=== PATIENT | female | born 1970 | race African-American/Black ===

== ENCOUNTER 2019-10-09 13:19 | Observation (INO) ==
--- NOTE | 2019-10-09 14:53 | Diag Imaging Result Doc PS360 ---
EXAM: FLAT/UPRIGHT ABD/1 VIEW CHEST HISTORY: constipation no bm x 7 days TECHNIQUE: Three views COMPARISON: 09/01/2019 FINDINGS: The lungs are well expanded. No pneumonia. No cardiomegaly. No free air beneath the diaphragm. There are multiple surgical clips in the upper abdomen. Prominent stool throughout the colon. No bowel obstruction. No organomegaly. IMPRESSION: Prominent constipation Electronically signed by Nilson Dickey 10/09/2019 2:51 PM
--- NOTE | 2019-10-09 15:53 | PROVIDER DOCUMENTATION ---
This chart was entered by Kimmy Fair Scribe, acting as scribe for Adama Norris MD. HPI-Abdominal Pain/GI Problem - General Chief Complaint: Constipation Stated Complaint: PASSED OUT Time Seen by Provider: 10/09/19 15:05 Source: patient Allergies/Adverse Reactions: Patient Allergies Allergy/AdvReac Type Severity Reaction Status Date / Time cefdinir [From Omnicef] Allergy RASH Verified 10/09/19 15:06 morphine Allergy RASH Verified 10/09/19 15:06 Home Medications: Home Medication List Medication Instructions Recorded Confirmed Last Taken Type Calcium 500 mg PO TID 03/01/18 10/09/19 09/01/19 History Cyanocobalamin (Vitamin B-12) 1 each INJ DIRECTED 03/01/18 10/09/19 09/01/19 History [Vitamin B-12] Ergocalciferol (Vitamin D2) 50,000 unit PO DIRECTED 03/01/18 10/09/19 09/01/19 History [Vitamin D] Levothyroxine [Synthroid] 25 microgm PO DAILY 03/01/18 10/09/19 09/01/19 History Multivitamin [Multivitamins] 1 each PO DAILY 03/01/18 10/09/19 09/01/19 History - History of Present Illness-ABD Nature of Presenting Problems: 49 y/o female presents to the ED with complaint of abdominal pain and constipation times one month worsening today, nausea times one week with vomiting beginning today.Last full BM was 1 week ago- now vomiting. The patient states she was seen here 2 weeks ago and took the enemas as suggested. She states she also saw PCP, Dr. Rosa, last week and increased who advised Miralax and continued Linzess as normal every other day without relief of symptoms. Last BM at least 7 days ago. Abdominal Pain Onset Location: reports: generalized abdomen Quality of Pain: reports: cramping Onset/Duration: reports: this morning Timing: reports: still present Activities at Onset: reports: light activity Associated Symptoms: reports: nausea, vomiting. denies: fever/chills Last BM: 1 week ago Rectal Bleeding: reports: none Rectal Pain: reports: none Similar Symptoms Previously?: Yes Recently seen or treated by another doctor?: Yes (here 2 weeks ago, PCP last week ) Review of Systems - Adult - REVIEW OF SYSTEMS - ADULT Constitutional: denies: chills, fever, night sweats Eyes: reports: no symptoms reported Ears, Nose, Mouth & Throat: reports: no symptoms reported Cardiovascular: reports: no symptoms reported Respiratory: reports: no symptoms reported Gastrointestinal: reports: abdominal pain, nausea, vomiting. denies: diarrhea Genitourinary: denies: dysuria, discharge, hematuria Musculoskeletal: reports: no symptoms reported Integumentary: reports: no symptoms reported Neurological: reports: no symptoms reported Psychiatric: reports: no symptoms reported Endocrine: reports: no symptoms reported Hematologic/Lymphatic: reports: no symptoms reported Allergic/Immunologic: reports: no symptoms reported All Other Systems: Reviewed and Negative Past History - Adult - PAST MEDICAL HISTORY-ADULT Review of Records: reports: Nursing Assessment Review, Medications Reviewed Major Childhood Illnesses: reports: denies history Cardiovascular: reports: HTN Respiratory: reports: denies history Gastrointestinal: reports: denies history Obstetrical/Gynecological: reports: denies history Genitourinary: reports: kidney disease Musculoskeletal: reports: denies history Neurological: reports: denies history Psychiatric: reports: denies history Endocrine/Immune: reports: thyroid disorder Other Conditions: reports: denies history - PRIOR SURGERIES/PROCEDURES Surgical/Procedure History: reports: cholecystectomy, hysterectomy, tonsillectomy - PRIOR HOSPITALIZATIONS Prior Hospitalizations: reports: for other non-related - IMMUNIZATION STATUS Childhood Immunizations: See Nurse Assessment Flu Vaccine: See Nurse Assessment - FAMILY HISTORY Family History: reviewed, not pertinent, other - SOCIAL HISTORY Smoking: non-smoker Substance Use: denies Living Situation: family Physical Exam-General - PHYSICAL EXAM-ADULT Initial Vital Signs Reviewed: Yes - CONSTITUTIONAL General Appearance: alert, moderate distress - RESPIRATORY Respiratory: lungs clear, normal breath sounds. negative: rales, rhonchi, wheezing - CARDIOVASCULAR Cardiovascular: regular rate, rhythm, no gallop - GASTROINTESTINAL (ABDOMEN) Abdominal Exam: soft, tenderness. negative: distended - SKIN Integumentary: normal color, warm/dry. negative: diaphoresis - NEUROLOGIC Neurologic: grossly normal Progress - PLAN OF CARE/RESULTS Progress/Plan/Lab Results: Vital Signs - 8 hr 10/09/19 13:31 Temperature 98 F Pulse Rate 75 Respiratory Rate 24 Blood Pressure 147/90 O2 Sat by Pulse Oximetry 100 Orders Category Date Time Status FLAT/UPRIGHT ABD/1 VIEW CHEST [RAD] Stat Exams 10/09/19 13:36 Completed - XRAY 1 XRAY Study: Abdomen (EXAM: FLAT/UPRIGHT ABD/1 VIEW CHEST HISTORY: constipation no bm x 7 days TECHNIQUE: Three views COMPARISON: 09/01/2019 FINDINGS: The lungs are well expanded. No pneumonia. No cardiomegaly. No free air beneath the diaphragm. There are multiple surgical clips in the upper abdomen. Prominent stool throughout the colon. No bowel obstruction. No organomegaly. IMPRESSION: Prominent constipation Electronically signed by Nilson Dickey 10/09/2019 2:51 PM) - CONSULTS/PCP/HOSPITALIST Notification #1 *Consult/PCP/Hospitalist*: Dr. Ponce, Hospitalist Time Discussed: 15:47 Reason/Comments: constipation Consult Disposition: Admit Departure - Departure Date of Disposition Decision: 10/09/19 Time of Disposition Decision: 15:48 DIAGNOSIS: Vomiting Constipation Qualifiers: Constipation type: chronic idiopathic constipation Qualified Code(s): K59.04 - Chronic idiopathic constipation Abdominal pain Qualifiers: Abdominal location: generalized Qualified Code(s): R10.84 - Generalized abdominal pain Disposition: ADMITTED INPATIENT 09 Certified Medical Emergency: Emergent Condition: Fair Referrals and Follow-Ups: Deborah Rosa MD [Primary Care Provider] - - Critical Care Note This patient required my direct & personal management of CC.: No Attestation - Physician/ JOSE Attestation Patient care was provided by Advanced Practice Provider:: No The physician spent face to face time with patient:: Yes Advanced Practice Provider documentation review:: Supervising physician onsite and consulted in the evaluation and care of this patient. The physician did have a face to face encounter with the patient. This chart was documented by the indicated scribe, (Kimmy Fair, Yogi) and accurately reflects the services I performed and decisions made by me, Adama Norris MD, as attested by the provider's signature.
[2019-10-09] MEDS ORDERED: DULCOLAX PR ONE (16:34)
[2019-10-09 16:48] LABS: BASO# 0.03 X1000 (0.0-0.2); BASO% 0.2 % (0.0-0.8); HEMATOCRIT 37.9 % (37.0-47.0); HEMOGLOBIN 12.7 g/dL (12.0-16.0); IMM GRAN# 0.04 X1000 (0.0-0.04); IMM GRAN% 0.3 % (0.0-0.5); LYMPH# 0.97 X1000 (1.2-3.4); LYMPH% 6.2 % (20.5-51.1); MCH 29.9 PG (27-31); MCHC 33.5 g/dL (33-37); MCV 89.2 FL (81-99); MONO# 0.78 X1000 (0.11-0.59); MPV 10.5 FL (7.4-10.4); NEUT# 13.88 X1000 (1.4-6.5); NEUT% 88.3 % (42.2-75.2); PLT 341 X1000 (130-400); RBC 4.25 XMIL (4.2-5.4); RDW 13.3 % (11.5-14.5)
[2019-10-09 16:55] LABS: URINE SOURCE CLEAN CATCH
[2019-10-09 16:59] LABS: BILIRUBIN URINE NEGATIVE (NEGATIVE); BLOOD URINE SMALL (NEGATIVE); COLOR STRAW; GLUCOSE URINE 100 mg/dL (NEGATIVE); KETONE URINE NEGATIVE (NEGATIVE); LEUKOCYTES URINE NEGATIVE (NEGATIVE); NITRITE URINE NEGATIVE (NEGATIVE); PH URINE 7.5; PROTEIN URINE NEGATIVE (NEGATIVE); SP GRAVITY URINE 1.011; TURBIDITY URINE CLEAR (CLEAR); UR EPITHELIAL CELLS <10 /HPF (<10); URINE BACTERIA NEGATIVE /HPF; URINE RBC <10 /HPF (<10); URINE WBC <10 /HPF (<10); UROBILINOGEN URINE NORMAL (NORMAL)
[2019-10-09 17:01] LABS: AGAP 13; BUN 10 mg/dL (8-22); CALCIUM 9.8 mg/dL (8.8-10.2); CHLORIDE 100 mmol/L (98-107); COSMO 275; CREATININE 0.7 mg/dL (0.5-0.9); ESTIMATED GFR > 60; GLUCOSE 141 mg/dL (70-104); POTASSIUM 3.9 mmol/L (3.5-5.1); SODIUM 137 mmol/L (136-145); TCO2 23 mmol/L (25-35)
[2019-10-09] MEDS ORDERED: BENTYL IM ONE (17:09)
--- NOTE | 2019-10-09 17:44 | HISTORY AND PHYSICAL ---
CHIEF COMPLAINT: Abdominal pain, nausea. HISTORY OF PRESENT ILLNESS: The patient is a very pleasant 49-year-old female who notes that she has chronic GI issues and chronic constipation. She is scheduled to see DR. Sainz I believe this week for said symptoms. However, her symptoms became worse. She has not had a bowel movement in a week. Notes that she has been nauseated, abdominal pain. In fact having more intense abdominal pain today than yesterday. Denies any fevers, chills. Denies any hematemesis, melena or hematochezia. The patient notes that she has taken enemas at home. She has tried MiraLAX. She has tried Linzess with no relief in symptoms. ALLERGIES: Cefdinir and morphine causing a rash. MEDICATIONS: Calcium, B12, Synthroid, multivitamin. REVIEW OF SYSTEMS: Positive nausea, vomiting, abdominal pain, decreased oral intake. She has been severely constipated. Has had no bowel movement in a week. Denies hematemesis, melena, hematochezia. Denies weight loss or gain but notes she does not check her weight on any regular basis. Denies fevers, chills, dysuria, frequency, urgency. PAST MEDICAL HISTORY: Hypertension, hypothyroidism. PAST SURGICAL HISTORY: She has had a hysterectomy, cholecystectomy and tonsillectomy. FAMILY HISTORY: Noncontributory. SOCIAL HISTORY: Patient does not smoke or drink. PHYSICAL EXAMINATION: VITAL SIGNS: Reviewed: Temp 98 degrees, pulse 85, respiratory 24, BP 147/90, sat 100% on room air. GENERAL: Patient is well is awake, alert, pleasant although somewhat ill-appearing due to her abdominal pain. She is in no respiratory distress. HEENT: Normocephalic. NECK: Supple. CARDIOVASCULAR: Regular rate, CHEST: Clear, nonlabored. ABDOMEN: Diffusely tender to even light palpation. Decreased but positive bowel sounds. Appears nondistended. Unable to fully examine due to her abdominal tenderness. EXTREMITIES: Moves all extremities no edema. NEUROLOGIC: No focal neurological changes. SKIN: Warm, dry. No rashes. ASSESSMENT: 1. Severe constipation. 2. Hypertension. 3. Hypothyroidism. 4. Nausea vomiting. PLAN: We are going to admit patient to the hospital. IV fluids. Enemas. Consult GI. Her labs are currently pending. We will look add thyroid to the labs ER order. We will treat labs after they return. We will start her on her home medications once doses are available. cc: Julián Ponce MD
[2019-10-09] MEDS ORDERED: FLEET ENEMA PR ONE (18:14)
[2019-10-09] MEDS ORDERED: FLEET ENEMA PR PRN (18:14)
[2019-10-09] MEDS ORDERED: MISC. PHARMACY COMMUNICATION SCH (19:00)
[2019-10-09] MEDS: TORADOL IV PRN (19:02)
[2019-10-09] MEDS: NS 1,000 ML IV SCH (21:30)
[2019-10-10] MEDS: TORADOL IV PRN ×3 (01:20→17:45)
[2019-10-10] MEDS: NON-FORMULARY BULK MED SCH ×2 (02:33→06:29)
[2019-10-10] MEDS: NS 1,000 ML IV SCH ×3 (06:30→21:15)
[2019-10-10 07:02] LABS: BASO# 0.02 X1000 (0.0-0.2); BASO% 0.1 % (0.0-0.8); EOS# 0.01 X1000 (0.0-0.7); EOS% 0.1 % (0.0-10.0); HEMATOCRIT 37.3 % (37.0-47.0); HEMOGLOBIN 12.5 g/dL (12.0-16.0); IMM GRAN# 0.05 X1000 (0.0-0.04); IMM GRAN% 0.3 % (0.0-0.5); LYMPH# 2.02 X1000 (1.2-3.4); LYMPH% 12.2 % (20.5-51.1); MCHC 33.5 g/dL (33-37); MCV 89.4 FL (81-99); MONO# 1.43 X1000 (0.11-0.59); MONO% 8.7 % (1.7-9.3); MPV 10.8 FL (7.4-10.4); NEUT# 12.97 X1000 (1.4-6.5); NEUT% 78.6 % (42.2-75.2); PLT 323 X1000 (130-400); RBC 4.17 XMIL (4.2-5.4); RDW 13.4 % (11.5-14.5)
[2019-10-10 07:22] LABS: AGAP 13; ALB/GLOB RATIO 1.7; ALBUMIN 3.9 g/dL (3.5-5.0); ALKALINE PHOSPHATASE 67 U/L (32-104); BUN 11 mg/dL (8-22); CALCIUM 9.4 mg/dL (8.8-10.2); CHLORIDE 108 mmol/L (98-107); COSMO 282; ESTIMATED GFR > 60; GLUCOSE 95 mg/dL (70-104); GOT 20 U/L (10-30); GPT 9 U/L (10-36); POTASSIUM 3.7 mmol/L (3.5-5.1); SODIUM 142 mmol/L (136-145); TCO2 21 mmol/L (25-35); TOTAL BILIRUBIN 0.84 mg/dL (0.20-1.00); TOTAL PROTEIN 6.2 g/dL (6.3-8.3)
[2019-10-10 07:41] LABS: FREE T4 0.87 ng/dL (0.93-1.70); TSH 0.71 uIUmL (0.27-4.20)
[2019-10-10] MEDS ORDERED: GOLYTELY PO ONE (12:12)
--- NOTE | 2019-10-10 13:36 | GASTROENTEROLOGY CONSULTATION ---
DATE: 10/10/2019 REASON FOR CONSULTATION: Constipation and syncope. HISTORY OF PRESENT ILLNESS: Ms. Melchor is a 49-year-old female with a history of gastric bypass in 2013. The patient also has deficiency of vitamin B 12, vitamin D and low iron. She goes for iron infusion to Dr. Crane. The patient mentioned having lost at least 100 pounds after gastric bypass. She had been to [facility] yesterday for her constipation and had received four enemas, and still she has not had a good bowel movement. Yesterday she came to [facility]. She mentioned that she has been having constipation for the last 1 week onwards, and yesterday she passed out in the bathroom. She had severe abdominal pain along with nausea and vomiting. The patient has denied any shortness of breath, fever, chills, or noticing any blood in the stool or in the emesis. The patient mentioned that she has also taken Linzess and MiraLAX for constipation. The patient mentioned having an EGD and a colonoscopy in March, findings were gastritis, 2 ulcers in the gastric anastomotic region, internal grade II hemorrhoids and stool in the rectosigmoid region- lavaged. Gastric pouch biopsy revealed gastritis and negative H-pylori. Her abdominal x-ray on 10/09 showed prominent constipation. PAST MEDICAL HISTORY: Hypertension, hypothyroidism, diabetes type 2, B 12 deficiency, vitamin D deficiency, low iron, Chronic constipation. PAST SURGICAL HISTORY: twice, hysterectomy, gallbladder surgery, nerve decompression of the right leg, and gastric bypass. FAMILY HISTORY: Her dad and grandfather had colon cancer. Mom has kidney cancer, hypertension and diabetes. SOCIAL HISTORY: Patient is , has 2 kids. She has denied any smoking, alcohol, or illicit drugs. The patient is currently on disability. ALLERGIES: To Omnicef and morphine. HOME MEDICATIONS: Calcium 500 mg 3 times a day, vitamin B 12 1000 mcg subcutaneous, vitamin D 50,000 units as directed, multivitamin 1 tablet daily, Synthroid 25 mg p.o. daily, alprazolam 1 mg three times a day and bupropion HCL 100 mg two tablets b.i.d. PHYSICAL EXAMINATION: Vital Signs: Temperature 97.6 degrees, pulse 79, respirations 18, blood pressure 113/54, oxygen saturation 100% on room air. The patient's weight is 180 pounds. BMI is 30.0 kg/m2. General: She is alert, oriented x3, and in no acute distress. Answers questions appropriately. HEENT: Pale conjunctivae. No icterus. PERRL. Neck: Supple. Lungs: Clear to auscultation in the anterior bell. Cardiovascular: Regular rate and rhythm. Abdomen: Mildly distended, soft, tender. Active bowel sounds heard in all 4 quadrants. Extremities: No clubbing, no cyanosis, no edema. Pedal pulses 2+ present bilaterally. Neurologic: She is alert and oriented x3. Nonfocal. Cranial nerves 2-12 grossly intact. LABS: WBC 16.50, RBCs 4.17, hemoglobin 12.5, hematocrit 37.3, platelet count 323. Sodium 142, potassium 3.7, chloride 108, carbon dioxide 21, anion gap 13. BUN 11, creatinine 1.0, glucose 95, calcium 9.4, total bilirubin 0.84. AST 20, ALT 9, alkaline phos 67, albumin is 3.9. TSH 0.71, and free T4 is 0.87. Urinalysis showed glucose of 100, small amount of blood. IMPRESSION: 1. Constipation treated with Linzess and Miralax and Enemas. 2. Nausea and vomiting. 3. Abdominal pain. 4. Syncope 6. S/P gastric bypass. 7. H/o anastomotic ulcers at gastric bypass site noted in March 2019 treated with PPI and Carafate. PLAN: Ms. Melchor is a 49 year old female with the history of gastric bypass, GI has been consulted for constipation. Patient's abdominal x- ray has shown prominent constipation. We have started her on golytely as a GI lavage and also Dulcolax 10 mg suppository at bedtime. The patient is on clear liquid diet. The patient is currently on IV fluids 125 ml/hr. She is receiving antiemetic Zofran for nausea and vomiting. We have ordered a KUB of the abdomen in am. We will continue to monitor the patient's bowel movements and follow the plan of care per PCP. This plan was discussed with Dr. Gonzales. Thank you for the consult and please call us for any further questions or concerns. Dictated by YUNG Blandon for Nahid Gonzales MD cc: Nahid Gonzales MD I have seen and examined the patient myself and I agree with the above plan of care. I have discussed the above with the patient and her family at bedside and all questions were answered. Please call us with any further questions. TOBI
[2019-10-10] MEDS: ZOFRAN IV PRN (15:07)
[2019-10-10] MEDS: TUMS PO SCH (16:41)
[2019-10-10] MEDS: XANAX PO SCH (17:39)
--- NOTE | 2019-10-10 18:29 | PROGRESS NOTE ---
DATE: 10/10/2019 SUBJECTIVE: The patient states that she feels very distended and full. She still has not had a decent bowel movement. OBJECTIVE: Vital Signs: Temperature 97.6 degrees, blood pressure 113/54, heart rate 79, respirations 18, O2 saturations 100% on room air. General: This is a middle- aged female lying in bed in no acute distress. Heart: S1, S2 normal. Regular rate and rhythm. Lungs: Clear to auscultation bilaterally. Abdomen: Hypoactive bowel sounds. Positive for diffuse tenderness. Extremities: No edema, no cyanosis, no calf tenderness. Neurologic: The patient is alert and oriented x3. LABORATORY DATA: White blood cell count 16, hemoglobin 12, hematocrit 37, platelets 323,000. Sodium 142, potassium 3.7, chloride 108, CO2 21, BUN 11, creatinine 1, glucose 95, TSH 0.7. ASSESSMENT AND PLAN: 1. Severe chronic constipation. The patient has been started on the GoLYTELY prep by GI. We will monitor her response closely. 2. Hypothyroidism. Continue on Synthroid. 3. Leukocytosis. The patient is afebrile. The chest x-ray is unremarkable, and the patient's urinalysis is normal. We will check inflammatory markers and consider a CT of the chest, abdomen, and pelvis if the white count continues to rise. 4. Depression. Continue on Wellbutrin. 5. Anxiety disorder. Continue on Xanax. 6. Deep vein thrombosis prophylaxis. We will start the patient on Lovenox. cc: Veronica Aguila MD MTDD
[2019-10-10] MEDS: WELLBUTRIN PO SCH (21:14)
[2019-10-10] MEDS: DULCOLAX PR SCH (21:15)
[2019-10-11] MEDS: TORADOL IV PRN ×3 (00:20→21:30)
[2019-10-11] MEDS: NS 1,000 ML IV SCH ×3 (06:00→20:04)
[2019-10-11] MEDS: SYNTHROID PO SCH (06:29)
[2019-10-11 06:54] LABS: HEMATOCRIT 33.7 % (37.0-47.0); MCH 29.7 PG (27-31); MCHC 32.6 g/dL (33-37); MCV 91.1 FL (81-99); MPV 10.9 FL (7.4-10.4); RBC 3.7 XMIL (4.2-5.4); RDW 13.6 % (11.5-14.5); WBC 8.18 X1000 (4.8-10.8)
[2019-10-11 07:24] LABS: AGAP 10; BUN 6 mg/dL (8-22); CALCIUM 8.5 mg/dL (8.8-10.2); CHLORIDE 107 mmol/L (98-107); COSMO 276; CREATININE 0.6 mg/dL (0.5-0.9); ESTIMATED GFR > 60; GLUCOSE 81 mg/dL (70-104); POTASSIUM 3.6 mmol/L (3.5-5.1); SODIUM 140 mmol/L (136-145); TCO2 23 mmol/L (25-35)
--- NOTE | 2019-10-11 08:43 | Diag Imaging Result Doc PS360 ---
EXAM: KUB ABDOMEN 10/11/2019 HISTORY: severe constipation TECHNIQUE: KUB COMMENT: There is some stool in the descending colon. There is gas throughout most of the colon without evidence of dilatation. There is some gas in the rectum. The small bowel is not distended. The stomach is not distended. There are surgical clips in the right upper quadrant and phleboliths in the pelvis. Compared to 10/09/2019 the quantity of stool in the colon has decreased markedly. IMPRESSION: Improved constipation. Electronically signed by Kaleb Andrade 10/11/2019 8:40 AM
[2019-10-11] MEDS: THERA M PLUS PO SCH (09:45)
[2019-10-11] MEDS: WELLBUTRIN PO SCH ×2 (09:45→20:04)
[2019-10-11] MEDS: LOVENOX SUBQ SCH (09:45)
[2019-10-11] MEDS: TUMS PO SCH ×3 (09:47→17:51)
[2019-10-11] MEDS: XANAX PO SCH ×3 (09:47→17:51)
--- NOTE | 2019-10-11 12:27 | GASTROENTEROLOGY PROGRESS NOTE ---
DATE: 10/11/2019 SUBJECTIVE: Ms. Melchor is a 49-year-old female, resting in bed. Nursing staff was at the bedside, giving her medications. The patient mentioned having 2 bowel movements so far, and she has denied any abdominal pain. OBJECTIVE: Vital Signs: Temperature 98.6 degrees, pulse 77, respirations 18, blood pressure 106/47, oxygen saturation 96% on room air. The patient's weight is 180 pounds. BMI is 30.0 kg/m2. General: She is alert and oriented x3, and in no acute distress. HEENT: Pale conjunctivae. No icterus. PERRL. Neck: Supple. Lungs: Clear to auscultation in the anterior bell. Cardiovascular: Regular rate and rhythm. Abdomen: Soft, nontender, nondistended. Active bowel sounds heard in all 4 quadrants. Extremities: No clubbing, no cyanosis, no edema. Pedal pulses 2+ present bilaterally. Neurologic: Alert and oriented x3. LABORATORY DATA: WBC 8.18, RBC 3.70, hemoglobin 11.0, hematocrit 37.7, platelet count 287,000. Sodium 140, potassium 3.6, chloride 107, carbon dioxide 23, anion gap 10, BUN 6, creatinine 0.6, glucose 81, calcium 8.5. IMAGING: Abdominal x-ray yesterday showed prominent constipation. The x-ray today showed improved constipation. IMPRESSION AND PLAN: Constipation Nausea and Vomiting Abdominal pain Syncope S/P gastric bypass History of anastomotic ulcers at the gastric bypass PLAN: Ms. Melchor is a 49-year-old female with a history of gastric bypass. GI has been consulted for her constipation. An abdominal x-ray today showed improved constipation. The patient is currently drinking her GoLYTELY, and she is also getting Dulcolax 10 mg suppository at bedtime. So far she has had 2 bowel movements. The patient is on a clear liquid diet, and she is tolerating her diet well. She is receiving antiemetic Zofran for her nausea and vomiting. We will continue to monitor the patient's bowel movements, and follow the plan of care per primary care physician. This plan was discussed with Dr. Montoya. Please call us for any further questions or concerns. Dictated by YUNG Blandon for Alcon Montoya MD Physician Attestation I have seen and examined the patient. I have discussed and reviewed the note by Mraleny BARRAGAN and agree with findings and plan as documented. In brief, Ms. Marquita Melchor is a 49 year old woman with h/o RYGB, marginal ulcers who presented with N/V in the setting of fecal impaction. She is having small bowel movements with improvement of constipation on KUB. Labs show chronic anemia without overt bleeding. She had diagnostic colonoscopy with Dr. Gonzales earlier this year. Will continue samuel MTDD
[2019-10-11] MEDS: ZOFRAN IV PRN (17:54)
[2019-10-11] MEDS: DULCOLAX PR SCH (20:04)
--- NOTE | 2019-10-11 20:10 | PROGRESS NOTE ---
DATE: 10/11/2019 INTERVAL HISTORY: No acute events overnight. She has had a bowel movement. SUBJECTIVE: Ms. Melchor is denying new complaints. We discussed about a hypothyroidism contributing to constipation. We discussed about keeping her on regular stool softeners. I answered all of her questions. VITALS: Temperature 97.3 degrees, pulse 60, respiratory 16, blood pressure 107/59, saturating 100% room air. PHYSICAL EXAMINATION: General: Not in acute distress. Mouth: Oral cavity is moist. Lungs: Air entry bilaterally equal. No wheeze or crackles. Cardiovascular: S1, S2 normal. No murmur or gallop. Abdomen: Soft, nontender, except mild tenderness in hypogastric region. Active bowel sounds. Extremity: No lower extremity edema. Neurologic: She is alert and oriented x3. LABS: Suggestive of resolution of leukocytosis. Normal hemoglobin, normal electrolytes. No microbiological data. Abdominal x-ray today morning suggests improvement in constipation. ASSESSMENT AND PLAN: 1. Nausea, abdominal discomfort on presentation, likely in the setting of severe constipation. Her hypothyroidism could be contributing factor. Continue GoLYTELY as per Gastroenterology recommendation. 2. Others: Continue home Synthroid for hypothyroidism, Wellbutrin for depression, Xanax for anxiety disorder, and enoxaparin for deep vein thrombosis prophylaxis. 3. Leukocytosis has resolved without any evidence of infection. Urinalysis did not have any pyuria. DISPOSITION: I will advance patient's diet to softer diet tomorrow morning. If the patient continues to have good bowel movement, my plan is to discharge her home. Plan of care discussed with her. All her questions have been answered. cc: Greg Fountain MD
[2019-10-12] MEDS: NS 1,000 ML IV SCH ×2 (04:34→05:54)
[2019-10-12] MEDS: SYNTHROID PO SCH ×2 (05:54→06:17)
[2019-10-12] MEDS: XANAX PO SCH ×2 (08:01→14:46)
[2019-10-12] MEDS: LOVENOX SUBQ SCH (08:04)
[2019-10-12] MEDS: WELLBUTRIN PO SCH (08:04)
[2019-10-12] MEDS: TUMS PO SCH ×2 (08:04→13:58)
[2019-10-12] MEDS: THERA M PLUS PO SCH (08:04)
[2019-10-12] MEDS: TORADOL IV PRN (09:35)
--- NOTE | 2019-10-12 10:22 | Diag Imaging Result Doc PS360 ---
EXAM: KUB ABDOMEN HISTORY: constipation TECHNIQUE: Single view COMPARISON: 10/11/2019 FINDINGS: No bowel obstruction. No significant constipation. Organomegaly. No foreign body. The several pelvic phleboliths. IMPRESSION: No constipation Electronically signed by Nilson Dickey 10/12/2019 10:19 AM
--- NOTE | 2019-10-12 12:27 | GASTROENTEROLOGY PROGRESS NOTE ---
DATE: 10/12/2019 SUBJECTIVE: Ms. Melchor is a 49-year-old female, sitting in bed. The patient complained of abdominal pain, and she says she had a few bowel movements last night, and it was very little in quantity. She has finished drinking all her GoLYTELY. OBJECTIVE: Vital Signs: Temperature 98.3 degrees, pulse is 86, respirations 16, blood pressure 126/68, oxygen saturation is 98% on room air. The patient's weight is 180 pounds. BMI is 30.0 kg/m2. General: She is alert, oriented x3, and in no acute distress. HEENT: Pale conjunctivae. No icterus. PERRL. Neck: Supple. Lungs: Clear to auscultation in the anterior bell. Cardiovascular: Regular rate and rhythm. Abdomen: Soft, mildly distended, tender in the upper quadrant. Active bowel sounds heard in all 4 quadrants. Extremities: No clubbing, no cyanosis, no edema. Pedal pulses 2+ present bilaterally. Neurologic: She is alert and oriented x3. IMAGING AND LABORATORY DATA: WBC is 8.18, RBC 3.70, hemoglobin 11.0, hematocrit 33.7, platelet count 287,000. Sodium 140, potassium 3.6, chloride 107, carbon dioxide 23, anion gap 10, BUN 6, creatinine 0.6, glucose 81, calcium 8.5. Abdominal x-ray yesterday showed improved constipation and today it showed no constipation. IMPRESSION AND PLAN: Constipation Nausea and vomiting Abdominal pain Syncope S/P gastric bypass History of anastomotic ulcers at the gastric bypass PLAN: Ms. Melchor is a 49-year-old female with a history of gastric bypass. GI is following her for her constipation. Her abdominal x-ray today showed no constipation. The patient was on a bowel regimen, GoLYTELY. She mentioned she had a few small bowel movements yesterday. She is also receiving Dulcolax 10 mg suppository at bedtime. The patient does have Fleet enema p.r.n. at bedtime. We have started her on Linzess 145 mcg, which is patient's home medication.. The patient is now on a GI soft diet. She is on IV fluids normal saline @ 125 mL per hour. She is receiving antiemetic, Zofran, for her nausea and vomiting. Patient was insisting on seeing Dr. Gonzales, she has discharge orders for today, we will follow her up at our clinic tomorrow at 2.15 pm. We will continue to monitor the patient, and follow the plan of care per PCP. This plan was discussed with Dr. Montoya. Please call us for any further questions or concerns. Dictated by YUNG Blandon for Alcon Montoya MD Physician Attestation I have seen and examined the patient. I have discussed and reviewed the note by Marleny BARRAGAN and agree with findings and plan as documented. In brief, Ms. Marquita Melchor is a 49 year old woman with h/o RYGB, marginal ulcers, chronic anemia who presented with N/V in the setting of fecal impaction resolved with golytely. She is tolerating PO without persistent N/V. Recommend restarting home Linzess, discharge, and follow-up with Dr. Gonzales upon discharge. [facility]
[2019-10-12] MEDS ORDERED: BENTYL PO PRN (15:50)
[2019-10-12 17:15] VITALS: BP 105/55
[2019-10-13] MEDS ORDERED: LINZESS PO SCH (07:00)
--- NOTE | 2019-10-13 15:09 | DISCHARGE SUMMARY ---
ADMISSION DATE: 10/09/2019 DISCHARGE DATE: 10/12/2019 DISCHARGE DISPOSITION: Home with family. DISCHARGE CONDITION: Hemodynamically stable. Her constipation has resolved. She still has intermittent abdominal pain. We discussed about possibility of irritable bowel syndrome. I advised her to have a follow up with her regular dedicated driver outpatient. I advised her that her abdominal pain may take several days to get better, and then she needs to continue to take her stool softeners to ensure 1 to 2 soft formed bowel movements a day. I told her that she can expect loose watery stools if she is on stool softeners. DISCHARGE DIAGNOSIS: 1) Nausea, abdominal discomfort and constipation with suspicion of irritable bowel syndrome. OTHER DIAGNOSES: 1. History of hypothyroidism. 2. History of anxiety. DISCHARGE MEDICATION: Alprazolam 1 mg t.i.d., bupropion 200 mg b.i.d., calcium 500 mg t.i.d., multivitamin 1 tablet daily, levothyroxine 25 mcg daily, vitamin B 12 1000 mcg as directed, vitamin D 2 50,000 units as directed, dicyclomine 10 mg t.i.d. as needed for abdominal cramps 40 capsules have been prescribed Linaclotide or Linzess 145 mcg daily 30 capsules have been prescribed, MiraLAX 17 g b.i.d. 30 powders have been prescribed. VITALS: At the time of discharge, temperature 98.1 degrees, pulse 76, respiratory 18, blood pressure 112/61, saturating 98% on room air. PHYSICAL EXAMINATION: General: On physical examination, not in acute distress. Oral cavity: Moist. Lungs: Air entry bilaterally equal. No wheeze, rhonchi, crackles. Cardiovascular: S1, S2 normal. No murmur or gallop. Abdomen: Soft, generalized tenderness. Active bowel sounds. No hepatosplenomegaly. Extremities: No lower extremity edema. Neurologic: She is alert and oriented x3. LABS: Suggestive of WBC of 8000, hemoglobin 11, platelet count 287. Potassium 3.6, BUN 6, creatinine 0.6. TSH was 0.7, free T4 of 0.8. MICROBIOLOGY: No data. IMAGING: During hospital admission abdominal x-ray on presentation had prominent constipation, which improved on subsequent x-ray. HOSPITAL COURSE SUMMARY: Ms. Melchor is a 49-year-old lady, who presented on 10/09/2019 with chief complaints of abdominal pain, nausea. She has had issues with chronic constipation and had underwent EGD and colonoscopy in the past by Dr. Gonzales. Concerning her constipation, Gastroenterology was consulted. She was started on GoLYTELY for chronic constipation, which improved her constipation, and she will be discharged on Linaclotide and MiraLAX. Patient claims that she has been taking these 2 medications at home. She refused to take anything per rectally including suppository or enema. She was also discharged on Bentyl for intermittent abdominal cramps. She was informed that there is a possibility she had irritable bowel syndrome, and she was advised to have outpatient GI followup. TIME SPENT: More than 30 minutes of time was spent in taking care of this patient. Detailed discharge instructions were provided to her. She was also provided instructions that her hypothyroidism could be a contributing factor towards her constipation. cc: Greg Fountain MD MTDD
== END 2019-10-12 17:15 | disposition home or self-care (01) | DRG 392 ==
LOC: P.ED 13:19 → DIRADM 16:27 → OPS 16:27 → 4N 16:27 → EDIPHOLD 17:26 → SUATTDRO 17:26 → 4N 20:01
PROVIDERS: ADMIT Internal Medicine; ATTEND Family Medicine